=== PATIENT | male | born 1970 | race Caucasian/White ===

== ENCOUNTER 2019-03-21 10:43 | Day surgery (SDC) | payer MEDICARE ==
[~2019-03-21] VITALS: Ht 170.2 cm; Wt 73.4 kg
== END 2019-03-21 18:15 | disposition home or self-care (01) ==
LOC: OUT 10:43
PROVIDERS: ATTEND Surgery Vascular Surgery
DX: E11.22 Type 2 diabetes mellitus with diabetic chronic kidney disease (principal); I13.2 Hypertensive heart and chronic kidney disease with heart failure and with stage 5 chronic kidney disease, or end stage renal disease; N18.6 End stage renal disease; I50.9 Heart failure, unspecified; E78.5 Hyperlipidemia, unspecified; I25.10 Atherosclerotic heart disease of native coronary artery without angina pectoris; G47.33 Obstructive sleep apnea (adult) (pediatric); Z95.5 Presence of coronary angioplasty implant and graft
CPT/HCPCS: 36415; 36558; 36821; 76937; 77001; 80047; 85025; 85610; 85730; 93005; C1751; J0690; J1100; J1644; J2405; J2704; J2720; J3010

== ENCOUNTER 2019-12-19 05:18 | Day surgery (SDC) | payer MEDICARE ==
[~2019-12-19] VITALS: Ht 170.2 cm; Wt 73.0 kg
[~2019-12-19 05:18] MED LIST: ACET-1600 PO; ASPI-496 PO; CALC667C PO; CARV-39 PO; CLOPIDOGREL PO; DIGOXIN PO; SIMV20TA19 PO; TORS20TA2 PO; TUMERIC PO; VIT1TABL46 PO; VITAMIN E PO
[2019-12-19] MEDS ORDERED: SODIUM CHLORIDE 0.9% 1,000 ML IV SCH (05:56)
[2019-12-19 06:00] VITALS: BP 137/87
[2019-12-19] MEDS ORDERED: CHLORHEXIDINE 15 ML UDC MM ONE (06:00)
[2019-12-19] MEDS ORDERED: LIDOCAINE-MPF 1%, 2ML INFIL ONE (06:00)
[2019-12-19] MEDS ORDERED: FURO20TA3 PO (06:19)
[2019-12-19] MEDS ORDERED: CHOL10003 PO (06:19)
[2019-12-19] MEDS ORDERED: PROTAMINE SULFATE 10 MG/ML, 5ML ONE (06:54)
[2019-12-19] MEDS ORDERED: HEPARIN 1,000 UNITS/ML, 10ML ONE (06:54)
[2019-12-19] MEDS ORDERED: THROMBIN 5,000 UNIT VIAL TP ONE (06:54)
[2019-12-19] MEDS ORDERED: BUPIVACAINE/PF-EPI 0.5% 1:200K ONE (06:54)
[2019-12-19] MEDS ORDERED: FENTANYL PF 250 MCG/5ML ONE (07:15)
[2019-12-19] MEDS ORDERED: MIDAZOLAM 1 MG/ML, 2ML ONE (07:15)
[2019-12-19] MEDS ORDERED: DEXAMETHASONE 4 MG/ML, 1ML ONE (07:15)
[2019-12-19] MEDS ORDERED: SUCCINYLCHOLINE 20 MG/ML, 10ML ONE (07:17)
[2019-12-19] MEDS ORDERED: ROCURONIUM 10 MG/ML,10ML ONE (07:34)
[2019-12-19] MEDS ORDERED: EPHEDRINE 50 MG/ML, 1ML ONE (07:34)
[2019-12-19] MEDS ORDERED: CEFAZOLIN 1,000 MG ONE (07:34)
[2019-12-19] MEDS ORDERED: ONDANSETRON 2MG/ML, 2ML ONE ×2 (07:34→08:28)
[2019-12-19 08:29] LABS: INTERNATIONAL NORMALIZED RATIO 1.14 (0.93-1.1); PROTHROMBIN TIME 12.1 Seconds (9.6-11.5)
[2019-12-19] MEDS ORDERED: LABETALOL 5MG/ML, 20ML IV PRN (08:30)
[2019-12-19] MEDS ORDERED: PROMETHAZINE 25 MG/ML, 1ML IV PRN (08:30)
[2019-12-19] MEDS ORDERED: HALOPERIDOL 5 MG/ML IV PRN (08:30)
[2019-12-19] MEDS ORDERED: HYDROmorphone 1 MG/ML, 1ML INJ IVPush PRN (08:30)
[2019-12-19] MEDS ORDERED: MIDAZOLAM 1 MG/ML, 2ML IV PRN (08:30)
[2019-12-19] MEDS ORDERED: ACETAMINOPHEN 325 MG TABLET PO PRN (08:30)
[2019-12-19] MEDS ORDERED: ONDANSETRON 2MG/ML, 2ML IV PRN (08:30)
[2019-12-19] MEDS ORDERED: ALBUTEROL SULFATE 2.5 MG/3 ML NPPB PRN (08:30)
[2019-12-19] MEDS ORDERED: hydrALAzine 20 MG/ML, 1ML IV PRN (08:30)
[2019-12-19] MEDS ORDERED: EPHEDRINE 50 MG/ML, 1ML IVPush PRN (08:30)
[2019-12-19] MEDS ORDERED: FENTANYL PF 100 MCG/2ML IV PRN (08:30)
[2019-12-19] MEDS ORDERED: PROMETHAZINE 12.5 MG SUPP PR PRN (08:30)
[2019-12-19] MEDS ORDERED: MEPERIDINE/PF 25MG/ML,1ML IVPush PRN (08:30)
[2019-12-19] MEDS ORDERED: OXYcodone 5 MG/5 ML ORAL.SOL UDC PO PRN (08:30)
[2019-12-19] MEDS ORDERED: ONDANSETRON ODT 8 MG PO PRN (08:30)
[2019-12-19] MEDS ORDERED: DIAZEPAM 5 MG/ML, 2ML IVPush PRN (08:30)
[2019-12-19] MEDS ORDERED: OXYcodone 5 MG/5 ML ORAL.SOL UDC ONE (09:15)
[2019-12-19] MEDS ORDERED: HYDROcodone/APAP 5/325 TABLET ONE (12:07)
[2019-12-19] MEDS ORDERED: HYDROcodone/APAP 5/325 TABLET PO ONE (12:30)
== END 2019-12-19 13:10 | disposition home or self-care (01) ==
LOC: OUT 05:18
PROVIDERS: ATTEND Surgery Vascular Surgery
DX: E11.22 Type 2 diabetes mellitus with diabetic chronic kidney disease (principal); N18.6 End stage renal disease; T82.590A Other mechanical complication of surgically created arteriovenous fistula, initial encounter; I25.10 Atherosclerotic heart disease of native coronary artery without angina pectoris; J44.9 Chronic obstructive pulmonary disease, unspecified; Z95.5 Presence of coronary angioplasty implant and graft; Y83.8 Other surgical procedures as the cause of abnormal reaction of the patient, or of later complication, without mention of misadventure at the time of the procedure
CPT/HCPCS: 36819; 80047; 82962; 85610; 85730; 93005; J0330; J0690; J1100; J1644; J2250; J2405; J3010; J7030; J2720